=== PATIENT | male | born 1970 | race Caucasian/White ===

== ENCOUNTER 2016-07-04 20:16 | Emergency (ER) | payer BC ==
[2016-07-04 20:45] VITALS: BP 150/83
[2016-07-04] MEDS ORDERED: Tetracaine HCl/PF 0.5% 4 ML Bottle EYELF ONE (21:05)
--- NOTE | 2016-07-04 21:52 | EDM.PDOC ---
ED HPI GENERAL MEDICAL PROBLEM - General Chief Complaint: Eye Problems Stated Complaint: SOMETHING IN EYE Time Seen by Provider: 07/04/16 20:54 Source of Information: Reports: Patient History Limitations: Reports: No Limitations - History of Present Illness INITIAL COMMENTS - FREE TEXT/NARRATIVE: This patient was grinding some metal yesterday and although he was using a face shield he still got a piece of debris in his left thigh. Last night it bothered him just a little bit but today being out in the wind caused a great deal of irritation. Now he has photophobia burning and watering. The vision is unaffected however. Left Eye Pain Score (Numeric/FACES): 5 - Related Data Allergies Allergy/AdvReac Type Severity Reaction Status Date / Time No Known Allergies Allergy Verified 07/04/16 20:55 Home Meds: Home Meds Insulin Glargine,Hum.Rec.Anlog [Lantus Solostar] 27 units SUBCUT DAILY 07/04/16 [History] Insulin Lispro [HumaLOG] 2 units SQ TID 07/04/16 [History] Past Medical History Musculoskeletal History: Reports: Other (See Below) Other Musculoskeletal History: torn ligament bilateral knee, left shoulder Endocrine/Metabolic History: Reports: Diabetes, Type I - Infectious Disease History Infectious Disease History: Reports: Chicken Pox - Past Surgical History Musculoskeletal Surgical History: Reports: Other (See Below) Social & Family History - Tobacco Use Smoking Status *Q: Former Smoker Used Tobacco, but Quit: Yes Month Tobacco Last Used: 2008 - Caffeine Use Caffeine Use: Reports: Soda - Recreational Drug Use Recreational Drug Use: No ED ROS GENERAL - Review of Systems Review Of Systems: ROS reveals no pertinent complaints other than HPI. ED EXAM GENERAL W FULL EYE - Physical Exam Exam: See Below Exam Limited By: No Limitations General Appearance: Alert, WD/WN, Mild Distress Eye Exam: Left Eye: Conjunctival Injection, Foreign Body, Vision Changes ( Vision unaffected, 20/20 per nurse), Bilateral Eye: PERRL Cornea Exam: Left: Foreign Body (There is a foreign body to the cornea of the left eye. It's at approximately the 9:00 position approximately 3 mm medial to the axis of the vision. It appears to be about 0.25 mm in diameter. It's black and appears to be a small piece of slag), Examined with Flourescein Course - Vital Signs Last Recorded V/S: Last Vital Signs Temp 36.3 C 07/04/16 20:59 Pulse 68 07/04/16 20:59 Resp 16 07/04/16 20:59 BP 150/83 H 07/04/16 20:59 Pulse Ox 95 07/04/16 20:59 - Orders/Labs/Meds Meds: Medications Discontinued Medications Generic Name Dose Route Start Last Admin Trade Name Kemi PRN Reason Stop Dose Admin Tetracaine HCl 1 ml 07/04/16 21:05 07/04/16 21:24 Tetracaine 0.5% Steri-Unit Zee EYELF 07/04/16 21:06 1 drop ASDIRECTED ONE Administration - Re-Assessments/Exams Free Text/Narrative Re-Assessment/Exam: 07/04/16 21:50 Tetracaine drops were instilled in the left thigh. I was thoroughly examined for foreign bodies and only a foreign body in the cornea was noted. Were seen stain was also used. The patient was taken to another treatment room for better access positioning. More tetracaine was then installed a light target was used to affix his vision and the foreign body was easily removed with a 21- gauge needle under magnification. A rust spot remains. Departure - Departure Time of Disposition: 21:51 Disposition: Home, Self-Care 01 Condition: fair Clinical Impression: Corneal foreign body with residual material - Discharge Information Forms: ED Department Discharge Additional Instructions: Use the gentamicin ointment one half inch to the left eye 3 times a day for the next 3 days. Use the pain medication Percocet 5/325, #10 tablets, one or 2 tablets every 4 hours as needed for pain. This medication can cause sedation and impair driving or operating machinery There is a small rust spot remaining in the cornea and this can be removed by an eye doctor using a small bur. If you have any problems with vision or increasing pain or other symptoms than return to the ER or see your
== END 2016-07-04 22:14 | disposition home or self-care (01) ==
LOC: JP.ED 20:16
DX: T15.02XA Foreign body in cornea, left eye, initial encounter (principal); M79.5 Residual foreign body in soft tissue; Z79.4 Long term (current) use of insulin; E10.9 Type 1 diabetes mellitus without complications; Z87.891 Personal history of nicotine dependence
CPT/HCPCS: 65220; 99283; A9270